=== PATIENT | female | born 1950 | race African-American/Black ===

== ENCOUNTER 2017-04-20 15:05 | Emergency (ER) | payer MEDICARE, OTHER ==
--- OUTSIDE RECORDS SUMMARY | 2017-04-20 15:07 | XMS | Clinical Summary ---
:1950 Author Organization [facility] Address [address] [place] [address] Phone Care Team Providers Name Role Phone Asked, No Primary Care Provider Unavailable Allergies Active Allergy Reactions Severity Noted Date Comments No Known Drug Allergies 12/03/2015 Current Medications Prescription Sig. Disp. Refills Start Date End Date Status amLODIPine (NORVASC) 10 MG Take 10 mg by Active tablet mouth. aspirin (ECOTRIN) 81 MG Take 81 mg by Active enteric coated tablet mouth. calcitriol (ROCALTROL) 0.5 Take 0.5 mcg by Active MCG capsule mouth. clonIDINE HCl (CATAPRES) Take 0.2 mg by Active 0.2 MG tablet mouth. cyclobenzaprine (FLEXERIL) Take 10 mg by Active 10 MG tablet mouth. lanthanum (FOSRENOL) 500 MG Chew 500 mg. Active chewable tablet CHOLECALCIFEROL, VITAMIN Take 400 Units by Active D3, (VITAMIN D3 ORAL) mouth. Active Problems Problem Noted Date Abnormal thyroid function test 04/02/2017 Multinodular goiter 10/23/2016 ESRD (end stage renal disease) 10/23/2016 Encounters Date Type Specialty Care Team Description 04/18/2017 Hospital Encounter Radiology Marva Berg Canceled (Patient) MD [facility] 04/18/2017 Hospital Encounter Radiology Marva Berg MD 04/02/2017 Office Visit Endocrinology Marva Berg Multinodular goiter MD [facility] (Primary Dx);Abnormal thyroid function test;ESRD (end stage renal disease) 02/25/2017 Telephone Endocrinology Nneka Emerson MA 02/24/2017 Telephone Endocrinology Nneka Emerson MA 02/19/2017 Lab Lab Marva Berg Thyroid nodule;ESRD MD [facility] (end stage renal disease) 02/19/2017 Telephone Transplant Yazmin Kim MA Questions regarding thyroid imaging lab from Last 3 Months Family History Medical History Relation Name Comments Diabetes Maternal Grandmother Relation Name Status Comments Maternal Grandmother Social History Tobacco Use Types Packs/Day Years Used Date Never Smoker Alcohol Use Drinks/Week oz/Week Comments No Sex Assigned at Date Recorded Not on file Last Filed Vital Signs Vital Sign Reading Time Taken Blood Pressure 106/59 04/02/2017 1:20 PM CDT Pulse 94 04/02/2017 1:20 PM CDT Temperature 36.3 C (97.3 F) 04/02/2017 1:20 PM CDT Respiratory Rate 16 10/23/2016 4:28 PM CDT Oxygen Saturation 100% 04/02/2017 1:20 PM CDT Inhaled Oxygen Concentration - - Weight 71.8 kg (158 lb 3.2 oz) 04/02/2017 1:20 PM CDT Height 162.6 cm (5' 4") 04/02/2017 1:20 PM CDT Body Mass Index 27.15 04/02/2017 1:20 PM CDT Plan of Treatment Date Type Specialty Care Team Description 04/24/2017 Appointment Radiology Marva Berg MD [address] [facility] [address] [place], [place] [id number] 05/20/2017 Office Visit Endocrinology Marva Berg MD [address] [facility] [address] [place], [place] [phone] Health Maintenance Due Date Last Done Comments COLONOSCOPY 2001 ZOSTER VACCINE 2011 PNEUMOCOCCAL POLYSACCHARIDE VACCINE AGE 65 AND OVER 2016 PNEUMOCOCCAL-13 2016 INFLUENZA VACCINE 02/18/2017 MAMMOGRAM 07/25/2017 07/25/2015 Results Thyroglobulin antibody (02/19/2017 4:49 PM) Component Value Ref Range Thyroglobulin Ab <0.9 0.0 - 4.0 IU/mL Specimen Performing Laboratory Serum [facility] DEPARTMENT OF PATHOLOGY AND GENOMIC MEDICINE [address] [facility] [place] [address] Estimated GFR (02/19/2017 4:49 PM) Component Value Ref Range GFR Non Af Amer 2(A) mL/min/1.73 m2 GFR Af Amer 2(A) mL/min/1.73 m2 Comment: Chronic kidney disease: <60 mL/min/1.73m2 Kidney failure: <15 mL/min/1.73m2 The estimated GFR is calculated from the IDMS-traceable Modification of Diet in Renal Disease Equation. The accuracy of the calculation is poor when the creatinine is normal. Calculated values >90 mL/min/1.73m2 are not reported. This equation has not been validated in children (<18 years), women, the elderly (>70 years), or ethnic groups other than Caucasians and Americans. Specimen Performing Laboratory Plasma specimen [facility] DEPARTMENT OF PATHOLOGY AND GENOMIC MEDICINE [address] [place] [id number] Thyroperoxidase antibody (02/19/2017 4:49 PM) Component Value Ref Range Thyroperoxidase Ab 0.6 0.0 - 9.0 IU/mL Specimen Performing Laboratory Serum [facility] DEPARTMENT OF PATHOLOGY AND [address] [address] Thyroid stimulating immunoglobulin (02/19/2017 4:49 PM) Component Value Ref Range Thyroid stimulating immunoglobulin 91 <=122 % Comment: INTERPRETIVE INFORMATION: Thyroid Stimulating Immunoglobulin Negative - 122 percent basal activity or less Positive - 123 percent basal activity or greater Positive results (123 percent or greater) are consistent with Graves disease but do not always correlate with the presence and severity of hyperthyroidism. Antibodies to the Thyroid Stimulating Hormone Receptor (TSHR) may be stimulating, blocking or neutral. Stimulating antibodies mimic the action of TSH and may cause hyperthyroidism (Graves disease). This test determines the net effect of all TSHR antibody types present in the serum specimen. Test developed and characteristics determined by [facility]. See Compliance Statement B: [employer] Performed by [facility], [address] [place] [address] [email or web address], Patrice Lakhani MD - Lab. Director Specimen Performing Laboratory Serum [facility] [address] [address] T3, free (02/19/2017 4:49 PM) Component Value Ref Range T3, free 1.5(L) 2.4 - 4.2 pg/mL Comment: REFERENCE INTERVAL: Triiodothyronine, Free (Free T3) Access complete set of age- and/or gender-specific reference intervals for this test in the [facility] Laboratory Test Directory ([employer]). Performed by [facility], [address] [place] [address] [email or web address], Patrice Lakhani MD - Lab. Director Specimen Performing Laboratory Serum [facility] [address] [place] [address] Thyroid stimulating hormone (02/19/2017 4:49 PM) Component Value Ref Range TSH 0.44 0.27 - 4.20 uIU/mL Specimen Performing Laboratory Plasma specimen [facility] DEPARTMENT OF PATHOLOGY AND GENOMIC MEDICINE [address] [place] [id number] T4, free (02/19/2017 4:49 PM) Component Value Ref Range T4, free 0.8(L) 0.9 - 1.7 ng/dL Specimen Performing Laboratory Plasma specimen [facility] DEPARTMENT OF PATHOLOGY AND [address] [address] Comprehensive metabolic panel (02/19/2017 4:49 PM) Component Value Ref Range Sodium 141 135 - 148 mEq/L Potassium 3.6 3.5 - 5.0 mEq/L Chloride 85(L) 98 - 112 mEq/L CO2 26 24 - 31 mEq/L Anion gap 30(H) 7 - 15 mEq/L Comment: Starting from October , anion gap calculation no longer incorporates potassium. Please note the change. BUN 105(H) 8 - 23 mg/dL Creatinine 18.2(H) 0.5 - 0.9 mg/dL Glucose 105(H) 65 - 99 mg/dL Calcium 8.3(L) 8.8 - 10.2 mg/dL Protein 7.7 6.3 - 8.3 g/dL Comment: 4.6-7.0 g/dL 1 week 4.4-7.6 g/dL 7 months-1year5.1-7.3 g/dL 1-2 years5.6-7.5 g/dL >3 years6.0-8.0 g/dL 18-150 6.3-8.3 g/dL Albumin 3.1(L) 3.5 - 5.0 g/dL A/G ratio 0.7 0.7 - 3.8 Alkaline phosphatase 87 35 - 104 U/L AST 20 10 - 35 U/L ALT 15 5 - 50 U/L Total bilirubin 0.4 0.0 - 1.2 mg/dL Specimen Performing Laboratory Plasma specimen [facility] DEPARTMENT OF PATHOLOGY AND GENOMIC MEDICINE [address] [place] [address] from Last 3 Months Insurance Payer Benefit Plan / Group Subscriber ID Type Phone Address GERALDINETKEANU WADE PPO OPEN CHOICE [id number] PPO MEDICARE MEDICARE PART A AND B [id number] Medicare [place], [place] Home: [address] [place], [place] [phone] [address] MAIA RAMIREZ Transplant Self 1950 Home: [address] [place], [place] [phone] [id number]
[2017-04-20 15:32] LABS: Anion Gap 13 mmol/L (-14-95); Critical Call POC Critical Value; Lactate 11.28 mmol/L (0.50-2.20); POC Est. GFR-MDRD-African-Amer 3 (2-60); POC Estimated GFR-MDRD 2 (2-60); T. Carbon Dioxide 32.6 mmol/L (1.0-85.0); pH (Venous) 7.151 (7.35-7.45); vO2 Saturation-calc 24.8 % (0.0-100.0)
[2017-04-20] MEDS ORDERED: EPINEPHrine 1 MG/10 ML Abboject SYRINGE ONE (17:00)
[2017-04-20] MEDS ORDERED: Atropine Sulfate 1 mg/10 ml Syringe ONE (17:00)
[2017-04-20] MEDS ORDERED: Calcium Chloride 1 GM/10 ML Abboject SYRINGE ONE (17:00)
[2017-04-20] MEDS ORDERED: Sodium Bicarb 50 MEQ/50 ML Abboject 8.4% SYRINGE ONE (17:00)
== END 2017-04-20 15:51 | disposition expired ==
LOC: ERS 15:05
DX: I46.9 Cardiac arrest, cause unspecified (principal); I10 Essential (primary) hypertension; F41.9 Anxiety disorder, unspecified; F32.9 Major depressive disorder, single episode, unspecified
CPT/HCPCS: 36556; 82330; 82435; 82565; 82803; 82947; 83605; 84132; 84295; 85014; 92950; 96374; 96375; J0171; J0461